=== PATIENT | female | born 1985 | race Caucasian/White ===

== ENCOUNTER 2018-10-24 09:02 | Emergency (ER) | payer OTHER ==
[~2018-10-24] VITALS: Ht 165.1 cm; Wt 96.2 kg
[2018-10-24 09:09] VITALS: Ht 165.1 cm; Wt 96.2 kg
[2018-10-24 10:44] VITALS: BP 152/87
== END 2018-10-24 11:26 | disposition home or self-care (01) ==
LOC: ED 09:02
DX: J98.01 Acute bronchospasm (principal); J02.9 Acute pharyngitis, unspecified; E03.9 Hypothyroidism, unspecified; E66.9 Obesity, unspecified; Z68.35 Body mass index [BMI] 35.0-35.9, adult
CPT/HCPCS: J2930; J7613; J7644